=== PATIENT | female | born 1935 | race Caucasian/White ===

== ENCOUNTER 2018-05-10 21:55 | Inpatient (IN) | payer MEDICARE ==
--- NOTE | 2018-05-10 22:28 | RAD ---
SINGLE VIEW OF THE CHEST: 05/10/18 COMPARISON: 10/26/16 HISTORY: Syncope. FINDINGS: Single view of the chest shows a normal sized cardiomediastinal silhouette with atherosclerotic calci fications in the aorta. There is no evidence of consolidation, mass, or pleural effusion. Hyperexpans ion of the lungs is likely secondary to COPD. Biapical pleural thickening is seen. IMPRESSION: No evidence of acute cardiopulmonary disease. POS: [facility]
[2018-05-10 22:39] LABS: Bilirubin Small (Negative); Blood, Urine Negative (Negative); Clarity CLEAR (Clear); Glucose, Urine (Dipstick) Negative (Negative); Leukocyte Trace (Negative); Nitrite Negative (Negative); Protein, Urine (Dipstick) Trace mg/dL (Neg-Trace); Specific Gravity, Urine 1.023 (1.002-1.036); Urobilinogen 0.2 mg/dL (0.2-1.0)
[2018-05-10 22:40] LABS: Bacteria/HPF None Seen HPF (None Seen); Hyaline Casts/LPF 0-3 HYALINE CAST LPF (0-3 Hyaline); Pathc Cast-AUWi Flag 0.72 (0-2.49); RBC/HPF 0-3 HPF (0-3); WBC/HPF 0-3 HPF (0-3)
[2018-05-10 22:41] LABS: #Basophils 0.1 thou/uL (0.0-0.2); #Eosinphils 0.1 thou/uL (0.0-0.7); #Lymphocytes 2.9 thou/uL (1.20-3.40); #Neutrophils 14.2 thou/uL (1.40-6.50); %Basophils 0.4 % (0.0-1.0); %Eosinophils 0.5 % (0.0-10.0); %Lymphocytes 14.9 % (21.0-51.0); %Monocytes 10.4 % (0.0-10.0); %Neutrophils 73.8 % (42.0-75.0); Hemoglobin 9.7 g/dL (12.0-16.0); INR-International Normal Ratio 1.2; MDiff Complete? YES; Mean Corpuscular HGB CONC 28.8 g/dL (32.0-36.0); Mean Corpuscular Hemoglobin 20.5 pg (27.0-31.0); Mean Corpuscular Volume 71.2 fL (78.0-98.0); Mean Platelet Volume 8.8 fL (7.4-10.4); Microcytosis SLIGHT = 6-15 cells (100X) (0-5/hpf); PLT Morphology Comment Appears Increased; Platelet Count 577 thou/uL (130-400); RBC Distribution Width 15.2 % (11.5-14.5); Red Blood Cell (RBC) Count 4.71 mill/uL (4.20-5.40); White Blood Cell (WBC) Count 19.3 thou/uL (4.8-10.8)
[2018-05-10] MEDS ORDERED: Piperacillin/Tazobactam 3.375 GM VIAL ONE (22:43)
[2018-05-10 22:48] LABS: Renal Epithelial 0-3 HPF (0-3)
[2018-05-10 22:51] LABS: ALT (SGPT) 11 U/L (8-55); AST (SGOT) 20 U/L (5-34); Albumin 4.2 g/dL (3.4-4.8); Alkaline Phosphatase 118 U/L (40-150); Anion Gap 21 mmol/L (10-20); BUN (Urea Nitrogen) 25 mg/dL (9.8-20.1); Bilirubin, Total 0.5 mg/dL (0.2-1.2); Calc. Creatinine Clearance 0 mL/min (70-130); Calcium 9.7 mg/dL (7.8-10.44); Carbon Dioxide 19 mmol/L (23-31); Chloride 101 mmol/L (98-107); Estimated GFR-MDRD 36; Globulin 3.4 g/dL (2.4-3.5); Glucose 263 mg/dL (83-110); Protein, Total 7.6 g/dL (6.0-8.3); Sodium 137 mmol/L (136-145)
[2018-05-10 23:11] LABS: CKMB 1.9 ng/mL (0-6.6)
[2018-05-11 02:24] LABS: Lactic Acid 2.3 mmol/L (0.5-2.2)
[2018-05-11 02:42] LABS: Troponin I 0.282 ng/mL (< 0.028)
[2018-05-11] MEDS ORDERED: Guaifenesin DM 100-10/5 ML UDCUP PO PRN (03:26)
[2018-05-11] MEDS ORDERED: Acetaminophen 325 MG TAB PO PRN (03:26)
[2018-05-11] MEDS ORDERED: Bisacodyl 5 MG TAB PO PRN (03:26)
[2018-05-11] MEDS ORDERED: Calcium Carbonate 500 MG ChewTAB PO PRN (03:26)
[2018-05-11] MEDS ORDERED: Zolpidem Tartrate 5 MG TAB PO PRN (03:26)
[2018-05-11] MEDS ORDERED: Acetaminophen 650 MG Suppository PR PRN (03:26)
[2018-05-11] MEDS ORDERED: Senokot S 8.6-50 MG TAB PO PRN (03:26)
--- NOTE | 2018-05-11 05:06 | HP ---
CHIEF COMPLAINT: Lethargy, near syncope, and dehydration. HISTORY OF PRESENT ILLNESS: This is an 83-year-old female with past medical history of orthostatic hypotension, atrial fibrillation, hyperlipidemia, hypertension, presenting with syncope, lethargy, and cough. Per family, the patient has had a cough since and on , the patient did not have any cough at all, but on the day of , they start noted that the patient had cough with productive sputum. The patient was also lethargic, confused, and the patient had decreased appetite. The patient was not taking her home medications. Per the daughter, the patient felt cold and clammy. Per the family, the patient has not been taking her medications because the patient is confused and the patient has been forgotten to take them. The daughter stated that the patient had associated chills, shortness of breath, cough, but denies any fever, chest pain, palpitation, abdominal pain, dysuria, hematuria, hematochezia, or melena. REVIEW OF SYSTEMS: Positive for chills, shortness of breath, productive sputum, otherwise as documented in the HPI, all systems were reviewed and are negative. PAST MEDICAL HISTORY: Hypertension, hyperlipidemia, and atrial fibrillation. FAMILY HISTORY: Reviewed and noncontributory to this visit. PAST SURGICAL HISTORY: Pacemaker and right carotid endarterectomy. PSYCH HISTORY: No previous psych history. SOCIAL HISTORY: The patient denies alcohol use. Denies illicit drug use. The patient has no smoking history. ALLERGIES: NO KNOWN DRUG ALLERGIES. CURRENT MEDICATIONS: The patient takes; 1. Combivent. 2. Respimat. 3. Omeprazole. 4. Potassium chloride. 5. Midodrine. 6. Atorvastatin. 7. Eliquis. 8. Alendronate. 9. Calcium 600 with vitamin D3. 10. Women's 50 Plus Daily Formula. 11. Flecainide 50 mg. 12. Aspirin 81 mg. 13. Digoxin 125 mcg. PHYSICAL EXAMINATION: VITAL SIGNS: The patient's blood pressure is 89/64, pulse of 124, respiratory rate of 18, and O2 saturation of 100%. GENERAL: The patient is lying in bed, does not appear to be in any acute distress. Family is by the bedside. The patient is speaking in full sentences. The patient is alert and oriented x3. HEENT: Normocephalic, atraumatic. Pupils are equally round and reactive to light. Extraocular movements are intact. No scleral icterus. No conjunctival pallor. Mucous membranes are moist. NECK: Trachea is midline. No meningeal signs. No cervical adenopathy. No tenderness. Full range of motion. No JVD. LUNGS: The patient has bilateral wheezing that is noted. The patient has rales that can be appreciated at the lower lobes bilaterally. CARDIAC: Positive S1 and S2. Irregularly irregular. No murmurs, no gallops, no rubs appreciated. ABDOMEN: Soft, nontender, and nondistended. Positive bowel sounds in all quadrants. No masses. No peritoneal signs. BACK: She has normal back. EXTREMITIES: The patient has 5/5 upper extremity strength and 5/5 lower extremity strength. The patient has good pulses bilaterally at the upper and lower extremities bilaterally. No edema noted at the lower extremities. NEUROLOGIC: Cranial nerves 2 through 12 grossly intact. No neurologic deficits noted. SKIN: Warm, dry, and intact. Mild maculopapular rash noted. DIAGNOSTIC DATA: EKG shows some ST depressions in lead I, lead II, and lead III, V1, V2, V3, V4, V5, V6 elevation. The patient is in atrial fibrillation with RVR. LABORATORY DATA: WBC is 19.3, hemoglobin is 9.7, hematocrit is 33.6, MCV 71.2, RDW is 15.2, and platelet count is 577. PT is 15.0, INR is 1.2, and PTT 28.0. Sodium is 137, potassium is 4.0, chloride is 101, carbon dioxide of 19, anion gap of 21, BUN is 25, creatinine is 1.41, GFR is 36, glucose is 263. Lactic acid is 9.9 and 2.3. Troponins is 0.033 and 0.282. BNP is 283. Urinalysis shows trace leukocyte esterase. ASSESSMENT AND PLAN: This is an 83-year-old female being admitted for; 1. Sepsis, secondary to pneumonia. At this point, we have ordered pneumonia panel. We have ordered cultures. We will follow up on cultures. We will start the patient on IV antibiotics. We will also give the patient DuoNeb treatments and we will start the patient on steroids since the patient is having bilateral wheezes at the anterior lung morales. We will give the patient p.r.n. acetaminophen for pain and fevers. The patient is going to be admitted to the [facility]. We will monitor the patient closely. 2. Atrial fibrillation with rapid ventricular response. At this point, the patient's heart rate is 92. We will continue the patient on her anticoagulations. We will monitor the patient closely. 3. [id number] myocardial infarction due to demand ischemia. At this point, the patient is septic, likely leading to elevated troponins. At this time, the patient is on anticoagulation. We will continue the patient on her cardiac regimen. We have consulted Cardiology. 4. Acute kidney injury likely due to dehydration. At this point, the patient has been resuscitated with normal saline. We will continue resuscitation measures and we will continue IV fluid for maintenance. We will continue to monitor the patient. 5. Urinary tract infection. The patient do have a trace leukocyte esterase in her urine. At this point, we will continue the patient on antibiotics. We will repeat the patient's urine culture in the future and we will follow up on culture and sensitivities. 6. Microcytic anemia, likely due to iron deficiency. At this point, we have ordered anemia panel. We will follow up anemia panel. 7. Deep venous thrombosis and gastrointestinal prophylaxis. Job ID: [id number]
[2018-05-11 05:13] LABS: #Lymphocytes 1.4 thou/uL (1.20-3.40); #Monocytes 1.2 thou/uL (0.11-0.59); #Neutrophils 10.3 thou/uL (1.40-6.50); %Eosinophils 0.3 % (0.0-10.0); %Monocytes 9.1 % (0.0-10.0); %Neutrophils 79.6 % (42.0-75.0); Hemoglobin 7.6 g/dL (12.0-16.0); Mean Corpuscular Volume 69.9 fL (78.0-98.0); Mean Platelet Volume 8.5 fL (7.4-10.4); Platelet Count 390 thou/uL (130-400); RBC Distribution Width 14.7 % (11.5-14.5); Red Blood Cell (RBC) Count 3.64 mill/uL (4.20-5.40)
[2018-05-11 05:31] LABS: Iron 38 ug/dL (50-170); Iron Binding Capacity, Total 284 mcg/dL (265-497)
[2018-05-11 05:48] LABS: Albumin 3.4 g/dL (3.4-4.8); Anion Gap 10 mmol/L (10-20); BUN (Urea Nitrogen) 25 mg/dL (9.8-20.1); Calc. Creatinine Clearance 0 mL/min (70-130); Calcium 9.2 mg/dL (7.8-10.44); Carbon Dioxide 26 mmol/L (23-31); Chloride 106 mmol/L (98-107); Estimated GFR-MDRD 57; Glucose 88 mg/dL (83-110); Phosphorus 3.9 mg/dL (2.3-4.7); Potassium 4.3 mmol/L (3.5-5.1); Sodium 138 mmol/L (136-145)
[2018-05-11 06:06] LABS: Vitamin B12 Greater than 2000 pg/mL (211-911)
[2018-05-11] MEDS ORDERED: Digoxin 0.125 MG TAB ONE (08:46)
[2018-05-11] MEDS ORDERED: Famotidine 20 MG TAB ONE (08:46)
[2018-05-11] MEDS: cefTRIAXone\\ROCEPHIN 2 GM in Sodium Chloride 0.9% 100 ML IVPB SCH (08:51)
[2018-05-11] MEDS ORDERED: Famotidine/PF 20 mg/2ml Vial SLOW IVP SCH (09:00)
[2018-05-11] MEDS: Sodium Chloride 0.9% 1,000 ML IV SCH ×2 (09:06→21:34)
[2018-05-11] MEDS: Flecainide 50 MG TAB PO SCH ×2 (09:12→21:22)
[2018-05-11] MEDS: Calcium Carbonate + Vit D 1 TAB PO SCH (09:13)
[2018-05-11] MEDS: Digoxin 0.125 MG TAB PO SCH (09:13)
[2018-05-11] MEDS: Famotidine 20 MG TAB PO SCH (09:13)
[2018-05-11] MEDS: Apixaban 5 MG TAB PO SCH ×2 (09:14→21:21)
[2018-05-11] MEDS: Midodrine HCl 5 MG TAB PO SCH ×2 (09:19→21:21)
[2018-05-11] MEDS: Azithromycin 500 MG in Sodium Chloride 0.9% 250 ML 250 ML IVPB SCH (11:23)
[2018-05-11] MEDS ORDERED: hydrALAZINE 20 MG/ML VIAL ONE (16:39)
[2018-05-11] MEDS ORDERED: Sodium Chloride 0.9% 500 ML IVPB SCH (19:00)
[2018-05-11] MEDS: Sodium Chloride 0.45% 1,000 ML IV SCH (21:11)
[2018-05-11] MEDS: Atorvastatin Calcium 40 MG TAB PO SCH (21:22)
[2018-05-11 23:07] VITALS: BMI 18.9
--- NOTE | 2018-05-12 01:33 | CON ---
DATE OF CONSULTATION: 05/11/2018 SERVICE: Pulmonary Medicine. REASON FOR CONSULTATION: COPD exacerbation. HISTORY OF PRESENT ILLNESS: The patient is an 83-year-old white female with past medical history significant for COPD. She has a greater than [id number] history of smoking and quit about 10 years ago. She was in her usual state of health until the day before [place]. She started having increasing dyspnea on exertion, cough, sputum production that was purulent, and increasing lethargy. She has been increasing amount of times in bed and stopped eating or drinking very well. Ultimately, she came to the hospital because she started having orthostasis. In the emergency department, she was given some fluid, steroids, nebulized medications. So far, the patient actually feels like she is doing much better. She is breathing more comfortably. She denies any fevers, chills, nausea, or vomiting. She has not had any diarrhea recently. PAST MEDICAL HISTORY: 1. Mild cognitive impairment, suspected. 2. COPD. 3. Hypertension. 4. Dyslipidemia. 5. Atrial fibrillation, paroxysmal. PAST SURGICAL HISTORY: 1. Pacemaker placement. 2. Right carotid endarterectomy. FAMILY HISTORY: Noncontributory. SOCIAL HISTORY: Negative for current alcohol, tobacco, or illicit drug use. She has given up driving and she has given up her finances as she was making mistakes. She has no exposure to chemicals, dust, asbestos, or tuberculosis. She has a greater than [id number] history of smoking, but quit over 10 years ago. ALLERGIES: NO KNOWN DRUG ALLERGIES. MEDICATIONS: List of her inpatient medications was reviewed. Multiple updates were made. REVIEW OF SYSTEMS: General, head, ears, eyes, nose, throat, cardiovascular, respiratory, GI, , musculoskeletal, neurologic, and skin is negative, except for as mentioned in the HPI. PHYSICAL EXAMINATION: VITAL SIGNS: Afebrile, pulse 75, respirations 18, and saturation 96% on room air. GENERAL: The patient is awake and alert, in no apparent distress. LUNGS: Decent air entry. There is extensive polyphonic wheezing on exhalation. There is no wheezing on inhalation. I do not appreciate any crackles dependently. There are no rhonchi. HEART: Normal rate, regular. Irregular tachy rhythm has resolved. ABDOMEN: Soft, nontender, and nondistended. Bowel sounds are positive. MUSCULOSKELETAL: No cyanosis or clubbing. There is no pitting in the bilateral lower extremities. NEUROLOGIC: Grossly nonfocal. LABORATORY DATA: WBC downtrending to 13.0, hemoglobin 7.6, platelets 398,000. INR 1.2. Basic metabolic profile is unremarkable. Iron is 38, TIBC 284. Troponin is up trending to 0.96. Albumin 3.4, folate 16.4, B12 of 2000. Lactate 2.3. Urinalysis is essentially unremarkable. Blood cultures x2, influenza A and B, and urine culture are all unremarkable today. IMAGING DATA: Chest x-ray demonstrates no acute cardiopulmonary abnormality. The lungs are hyperexpanded consistent with air trapping. ASSESSMENT: 1. Chronic obstructive pulmonary disease with acute exacerbation. 2. Atrial fibrillation with rapid ventricular rate, returned to sinus rhythm. 3. Early dementia, suspected. 4. Acute kidney injury. 5. Dehydration secondary to poor p.o. intake. PLAN: Agree with gentle hydration. We will give her 5 days of steroids and 5 days of antibiotics for her COPD exacerbation. Frequent nebulized medications will be provided. Pulmonary Critical Care will continue to follow for the time being. I see no evidence of pneumonia on the chest x-ray. As such, I think we can get by with oral fluoroquinolone for the next 5 days. We will make this transition in the morning. Steroids will be de-escalated. I will run a respiratory virus panel to see whether or not she has picked up a virus. 70 minutes have been devoted to this patient in various activities. I personally reviewed all imaging studies and laboratory data noted within this document. For fifty percent of this time, I was interacting with the patient at the bedside or coordinating care with the care team. For the remainder of the time I was immediately available to the patient in the hospital unit. Job ID: [id number] [facility]
[2018-05-12] MEDS: cefTRIAXone\\ROCEPHIN 2 GM in Sodium Chloride 0.9% 100 ML IVPB SCH (08:46)
[2018-05-12] MEDS: Apixaban 5 MG TAB PO SCH ×2 (08:47→20:14)
[2018-05-12] MEDS: predniSONE 20 MG TAB PO SCH (08:47)
[2018-05-12] MEDS: Digoxin 0.125 MG TAB PO SCH (08:48)
[2018-05-12] MEDS: Calcium Carbonate + Vit D 1 TAB PO SCH (08:48)
[2018-05-12] MEDS: Famotidine 20 MG TAB PO SCH (08:49)
[2018-05-12] MEDS: Midodrine HCl 5 MG TAB PO SCH ×2 (08:49→20:12)
[2018-05-12] MEDS: Flecainide 50 MG TAB PO SCH ×2 (08:49→20:13)
[2018-05-12] MEDS: Azithromycin 500 MG in Sodium Chloride 0.9% 250 ML 250 ML IVPB SCH (09:51)
--- NOTE | 2018-05-12 13:28 | PDOC.CTH ---
Cardiology Progress Note - Subjective No complaints. Breathing easier. No CP/palpitations or dizziness. - Objective Vital Signs Temp Pulse Resp BP Pulse Ox 05/12/18 12:01 97.8 F 95 20 164/69 H 97 05/12/18 08:48 108 H 05/12/18 07:50 98.7 F 90 16 162/72 H 97 05/12/18 06:41 91 16 98 05/12/18 04:00 98.4 F 90 18 110/54 L 95 Weight 110 lb 3.2 oz 05/11/18 05/12/18 05/13/18 06:59 06:59 06:59 Intake Total 740 Output Total 625 Balance 115 - Physical Examination General/Neuro: alert & oriented x3 Neck: no JVD present Lungs: CTA Heart: RRR Abdomen: NT/ND - Telemetry Telemetry Rhythm: SR - Labs Result Diagrams: 05/11/18 05:01 05/11/18 05:01 Troponin/CKMB CK-MB (CK-2) 1.9 ng/mL (0-6.6) 05/10/18 22:03 Troponin I 0.960 ng/mL (< 0.028) H* 05/11/18 05:01 - Assessment/Plan 1. PNA 2. Paroxysmal AF 3. History of hypotension on midodrine 4. Tachycardia Contine IV hydration, flecainide and digoxin. If AF reoccurs could increase flecainide to 75mg BID. Continue Eliquis 2.5mg BID.
--- NOTE | 2018-05-12 14:21 | PDOC.PN ---
- Subjective Encounter Start Date: 05/12/18 Encounter Start Time: 13:00 -: old records requested/rev Pt seen and examined, chart reviewed in its entirety, this is my cooper visit wtih this patient Follow up for possible CAP, AECOPD. Pt on RA. breathing is better, getting up near the bed with PT No f/C, no N/V/D/C, no CP or sOB, no new complaints All systems reviewed adn neg x as above - Objective Resuscitation Status - Order Detail: 05/11/18 03:20 Resuscitation Status Routine Resuscitation Status: FULL: Full Resuscitation MAR Reviewed: Yes Vital Signs & Weight: Vital Signs (12 hours) Temp Pulse Resp BP Pulse Ox 05/12/18 13:55 106 H 18 98 05/12/18 12:01 97.8 F 95 20 164/69 H 97 05/12/18 08:48 108 H 05/12/18 07:50 98.7 F 90 16 162/72 H 97 05/12/18 06:41 91 16 98 05/12/18 04:00 98.4 F 90 18 110/54 L 95 Weight Admit Weight 110 lb Weight 110 lb 3.2 oz I&O: 05/11/18 05/12/18 05/13/18 06:59 06:59 06:59 Intake Total 740 Output Total 625 Balance 115 Result Diagrams: 05/11/18 05:01 05/11/18 05:01 Radiology Reviewed by me: Yes EKG Reviewed by me: Yes Phys Exam - Physical Examination Constitutional: NAD HEENT: PERRLA, moist MMs, sclera anicteric, oral pharynx no lesions Neck: no nodes, no JVD, supple, full ROM end exp low pitched wheezes, R>L, Lef tposterior harsh crackles Cardiovascular: RRR, no rub 3/6 ELIF LUSB Gastrointestinal: soft, non-tender, no distention, positive bowel sounds Musculoskeletal: no edema, pulses present Neurological: non-focal, normal sensation, moves all 4 limbs Lymphatic: no nodes Psychiatric: normal affect, A&O x 3 Skin: no rash, normal turgor, cap refill <2 seconds Dx/Plan (1) Severe sepsis Code(s): A41.9 - SEPSIS, UNSPECIFIED ORGANISM; R65.20 - SEVERE SEPSIS WITHOUT SEPTIC SHOCK Status: Acute (2) Atrial fibrillation with RVR Code(s): I48.91 - UNSPECIFIED ATRIAL FIBRILLATION Status: Acute (3) Demand ischemia of myocardium Code(s): I24.8 - OTHER FORMS OF ACUTE ISCHEMIC HEART DISEASE Status: Acute (4) Pneumonia Code(s): J18.9 - PNEUMONIA, UNSPECIFIED ORGANISM Status: Acute Qualifiers: Pneumonia type: due to unspecified organism Laterality: left Lung location: unspecified part of lung Qualified Code(s): J18.9 - Pneumonia, unspecified organism (5) COPD exacerbation Code(s): J44.1 - CHRONIC OBSTRUCTIVE PULMONARY DISEASE W (ACUTE) EXACERBATION Status: Acute Comment: resolving (6) HTN (hypertension) Code(s): I10 - ESSENTIAL (PRIMARY) HYPERTENSION Status: Chronic Qualifiers: Hypertension type: essential hypertension Qualified Code(s): I10 - Essential (primary) hypertension (7) Hyperlipidemia Code(s): E78.5 - HYPERLIPIDEMIA, UNSPECIFIED Status: Chronic Qualifiers: Hyperlipidemia type: unspecified Qualified Code(s): E78.5 - Hyperlipidemia , unspecified (8) Physical deconditioning Code(s): R53.81 - OTHER MALAISE Status: Chronic Comment: PT evaluation and assessment for functional state - Plan cont current plan of care, plan discussed w/ family, continue antibiotics, PT/OT , respiratory therapy * .
[2018-05-12] MEDS: Sodium Chloride 0.45% 1,000 ML IV SCH (15:32)
--- NOTE | 2018-05-12 18:30 | EKG ---
Test Reason : Blood Pressure : / mmHG Vent. Rate : 142 BPM Atrial Rate : 156 BPM P-R Int : 000 ms QRS Dur : 078 ms QT Int : 278 ms P-R-T Axes : 000 -66 093 degrees QTc Int : 427 ms Atrial fibrillation with rapid ventricular response Left axis deviation Marked ST abnormality, possible inferolateral subendocardial injury Abnormal ECG Confirmed by CARLOS ARNOLD DO [id number]), legal editor LORENZO GRAY ([id number] on 05/12/2018 6:29:37 PM Referred By: Confirmed By:CARLOS ARNOLD DO
[2018-05-12] MEDS: Atorvastatin Calcium 40 MG TAB PO SCH (20:13)
[2018-05-12] MEDS ORDERED: Ascorbic Acid 500 mg Chewable Tablet PO SCH (20:30)
[2018-05-12 21:04] LABS: Strep pneumo Urine Ag NEGATIVE (NEGATIVE)
--- NOTE | 2018-05-12 21:38 | PRG ---
DATE OF SERVICE: 05/12/2018 SERVICE: Pulmonary Medicine. INTERVAL HISTORY: The patient is breathing comfortably right now. Her shortness of breath is much improved. Strength is actually improving a little bit as well. She is not agitated today. She denies any fevers, chills, nausea, or vomiting. She is coughing, but not bringing up much in the way of sputum. OBJECTIVE: VITAL SIGNS: Afebrile, pulse 109, blood pressure 129/58, respirations 20, and saturation 100% on room air. GENERAL: The patient is awake and alert, in no apparent distress. LUNGS: Decent air entry. There is a prolonged expiratory phase and a little bit of wheezing. No rhonchi are present today. No crackles are appreciated. HEART: Normal rate and regular. ABDOMEN: Soft, nontender, and nondistended. Bowel sounds are positive. MUSCULOSKELETAL: No cyanosis or clubbing. No pitting in the bilateral lower extremities. NEUROLOGIC: Grossly nonfocal. LABORATORY DATA: WBC 13.0, hemoglobin 7.6, and platelets 390,000 and improving. Neutrophil count has improved to 79%. INR 1.2. Basic metabolic profile is unremarkable. Iron is low. Respiratory virus panel is positive for respiratory syncytial virus B. Blood cultures x2, urine culture, influenza A and B are unremarkable. ASSESSMENT: 1. Chronic obstructive pulmonary disease exacerbation, secondary to respiratory syncytial virus B. 2. Atrial fibrillation with rapid ventricular response, returned to sinus rhythm. 3. Early dementia, suspected. 4. Acute kidney injury, resolved. 5. Dehydration, secondary to poor p.o. intake. 6. Iron-deficiency anemia. DISCUSSION AND PLAN: We will continue to gently hydrate the patient through time. We will continue our antibiotics. I will drop the Rocephin as it was not dealing with a typical organism. If she has any inflammatory changes, they are secondary to respiratory syncytial virus. We will keep the azithromycin on board for the anti-inflammatory effect. This can be stopped after a total duration of 5 days. I will check some laboratories with a.m. labs to confirm the iron deficiency. If present, she will need to be on iron replacement through time. Job ID: [id number]
[2018-05-13 06:15] LABS: Anion Gap 11 mmol/L (10-20); BUN (Urea Nitrogen) 17 mg/dL (9.8-20.1); Calc. Creatinine Clearance 53 mL/min (70-130); Calcium 8.9 mg/dL (7.8-10.44); Carbon Dioxide 23 mmol/L (23-31); Chloride 108 mmol/L (98-107); Estimated GFR-MDRD Greater than 90; Glucose 108 mg/dL (83-110); Magnesium 1.8 mg/dL (1.6-2.6); Potassium 3.4 mmol/L (3.5-5.1); Sodium 139 mmol/L (136-145)
[2018-05-13 06:16] LABS: Phosphorus 3.2 mg/dL (2.3-4.7); Transferrin, Serum 229 mg/dL (173-360)
[2018-05-13 06:32] LABS: Band 2 % (5-11); Elliptocytes SLIGHT = 2-5 cells (100X) (0-1/hpf); Hypochromia MODERATE=16-30 cells (100X) (0-5/hpf); Lymphocytes 18 % (21-51); MDiff Complete? YES; Mean Corpuscular HGB CONC 29.7 g/dL (32.0-36.0); Mean Corpuscular Hemoglobin 20.4 pg (27.0-31.0); Mean Corpuscular Volume 68.7 fL (78.0-98.0); Mean Platelet Volume 8.3 fL (7.4-10.4); Monocytes 10 % (0-10); Neutrophil 69 % (42-75); PLT Morphology Comment Appears Adequate; Platelet Count 395 thou/uL (130-400); RBC Distribution Width 14.6 % (11.5-14.5); Reactive Lymphocytes 1 % (0-10); Red Blood Cell (RBC) Count 2.92 mill/uL (4.20-5.40); Target Cells SLIGHT = 2-5 cells (100X) (0-1/hpf); White Blood Cell (WBC) Count 8.8 thou/uL (4.8-10.8)
[2018-05-13] MEDS: Ascorbic Acid 500 mg Chewable Tablet PO SCH (08:24)
[2018-05-13] MEDS: predniSONE 20 MG TAB PO SCH (08:24)
[2018-05-13] MEDS: Calcium Carbonate + Vit D 1 TAB PO SCH (08:25)
[2018-05-13] MEDS: Digoxin 0.125 MG TAB PO SCH (08:25)
[2018-05-13] MEDS: Azithromycin 250 MG TAB PO SCH (08:25)
[2018-05-13] MEDS: Midodrine HCl 5 MG TAB PO SCH (08:26)
[2018-05-13] MEDS: Flecainide 50 MG TAB PO SCH ×2 (08:26→20:17)
[2018-05-13] MEDS: Famotidine 20 MG TAB PO SCH (08:26)
--- NOTE | 2018-05-13 11:56 | PDOC.CTH ---
Cardiology Progress Note - Objective Vital Signs Temp Pulse Pulse Resp BP BP Pulse Ox 05/13/18 11:50 98.1 F 94 16 164/70 H 95 05/13/18 11:27 97.8 F 91 18 142/65 H 98 05/13/18 08:25 105 H 05/13/18 08:20 98.2 F 105 H 20 157/72 H 92 L 05/13/18 07:34 95 05/13/18 04:00 97.8 F 85 20 127/59 L 97 05/13/18 00:38 89 16 96 Admit Weight 110 lb Weight 112 lb 12.8 oz 05/12/18 05/13/18 05/14/18 06:59 06:59 06:59 Intake Total 2230 0 Output Total 2325 Balance -95 0 - Physical Examination General/Neuro: alert & oriented x3 Neck: no JVD present Lungs: other: (coarse BS bilaterally; no wheeze) Heart: RRR Abdomen: NT/ND Extremities: other: (no edema) - Telemetry Telemetry Rhythm: SR/ST - Labs Result Diagrams: 05/13/18 05:37 05/13/18 05:37 Troponin/CKMB CK-MB (CK-2) 1.9 ng/mL (0-6.6) 05/10/18 22:03 Troponin I 0.960 ng/mL (< 0.028) H* 05/11/18 05:01 - Assessment/Plan 1. RSV 2. Paroxysmal AF 3. History of hypotension on midodrine 4. Tachycardia 5. Acute Anemia Agree with stop Eliquis. Transfuse. Supportive care of RSV.
[2018-05-13] MEDS ORDERED: Furosemide 20 MG/2 ML VIAL SLOW IVP SCH (15:00)
[2018-05-13] MEDS: hydrALAZINE 20 MG/ML VIAL SLOW IVP PRN (16:07)
[2018-05-13] MEDS: Atorvastatin Calcium 40 MG TAB PO SCH (20:17)
[2018-05-13] MEDS ORDERED: Digoxin 0.5 MG/2 ML AMP ONE (20:27)
[2018-05-13] MEDS ORDERED: Magnesium 2 GM/50 ML 2 GM in Premix Bag 1 BAG IVPB SCH (20:30)
[2018-05-13] MEDS ORDERED: Digoxin 0.5 MG/2 ML AMP SLOW IVP SCH (20:30)
--- NOTE | 2018-05-13 20:31 | PRG ---
DATE OF SERVICE: 05/13/2018 SERVICE: Pulmonary Medicine. INTERVAL HISTORY: The patient is feeling stronger as of this morning. She actually felt much improved. That being said, she got a unit of blood. Afterwards, she got hypertensive event and had increasing shortness of breath. She got a dose of Lasix. She had a little bit of urine output associated with that, but it was until she got a p.r.n. blood pressure medication that her blood pressure got under better control. She is coughing a little bit more. PHYSICAL EXAMINATION: VITAL SIGNS: Afebrile, pulse 154, respirations 18, saturation 95% on room air, and blood pressure 163/73. HEENT: Normocephalic and atraumatic. Sclerae white. Conjunctivae pink. Oral mucosa is moist without lesions. LUNGS: Reduced air entry today. There is a prolonged expiratory phase and polyphonic wheezing. Dependent crackles are noted. HEART: Normal rate, regular. ABDOMEN: Soft, nontender, and nondistended. Bowel sounds are positive. MUSCULOSKELETAL: No cyanosis or clubbing. There is no pitting in the bilateral lower extremities. NEUROLOGIC: Grossly nonfocal. LABORATORY DATA: WBC 8.8, hemoglobin 6.0, and platelets 395,000. Potassium 3.4. Phosphorus 3.2 and magnesium 1.8. LDH 236, which is just above upper limits of normal. Transferrin 229, which is normal. Ferritin stores are at the lower limits of normal. ASSESSMENT: 1. Chronic obstructive pulmonary disease exacerbation secondary to respiratory syncytial virus B. 2. Multifocal atrial tachycardia. 3. Acute kidney injury, resolved. 4. Iron-deficiency anemia. 5. Acute blood loss anemia. 6. Dehydration, resolved. DISCUSSION AND PLAN: We will continue nebulized medications, steroids, and antibiotics. We are investigating, where the blood is going. Pulmonary/Critical Care will continue to follow along while the patient remains in this location. We will watch her volume status very closely. Job ID: [id number]
[2018-05-13] MEDS: Diltiazem 125 MG in Sodium Chloride 0.9% 100 ML IVPB SCH (21:15)
[2018-05-13] MEDS: Potassium Chloride 20 MEQ TAB PO SCH (21:28)
[2018-05-14] MEDS: Potassium Chloride 20 MEQ TAB PO SCH (01:14)
[2018-05-14 05:35] LABS: Hemoglobin 10.8 g/dL (12.0-16.0)
[2018-05-14 05:49] LABS: Anion Gap 14 mmol/L (10-20); BUN (Urea Nitrogen) 18 mg/dL (9.8-20.1); Calc. Creatinine Clearance 44 mL/min (70-130); Calcium 9.5 mg/dL (7.8-10.44); Carbon Dioxide 26 mmol/L (23-31); Chloride 103 mmol/L (98-107); Estimated GFR-MDRD 73; Glucose 126 mg/dL (83-110); Potassium 3.9 mmol/L (3.5-5.1); Sodium 139 mmol/L (136-145)
[2018-05-14 05:53] LABS: Digoxin 1.43 ng/mL (0.8-2.0)
[2018-05-14] MEDS: hydrALAZINE 20 MG/ML VIAL SLOW IVP PRN ×2 (06:16→17:30)
[2018-05-14] MEDS: predniSONE 20 MG TAB PO SCH (08:58)
[2018-05-14] MEDS: Digoxin 0.125 MG TAB PO SCH (08:58)
[2018-05-14] MEDS: Famotidine 20 MG TAB PO SCH (08:58)
[2018-05-14] MEDS: Azithromycin 250 MG TAB PO SCH (08:58)
[2018-05-14] MEDS: Flecainide 50 MG TAB PO SCH ×2 (08:58→21:30)
[2018-05-14] MEDS: Ascorbic Acid 500 mg Chewable Tablet PO SCH (08:58)
[2018-05-14] MEDS: Calcium Carbonate + Vit D 1 TAB PO SCH (08:58)
--- NOTE | 2018-05-14 14:18 | CON ---
DATE OF CONSULTATION: REASON FOR CONSULTATION: Shortness of breath. HISTORY OF PRESENT ILLNESS: Ms. Sebastian is a 83-year-old woman, who is a patient of Dr. Caraballo. She was last seen and evaluated in January of 2017. She has a previous history of malnutrition, lactic acidosis, elevated troponin, deconditioning, atrial fibrillation. She is currently on anticoagulation therapy. Recently, she has had decreased p.o. intake. Medications that are normally taken on a regular basis have not been taken as scheduled. Her main issue today appears to be related to dehydration and mental status changes. No chest pain or pressure noted. PAST MEDICAL HISTORY: COPD; sick sinus syndrome, status post pacemaker implantation in 2017; diastolic dysfunction; hypertension; and hyperlipidemia. ALLERGIES: NONE. PAST SURGICAL HISTORY: Carotid endarterectomy. MEDICATIONS: Include Combivent, omeprazole, potassium, midodrine, atorvastatin, Eliquis, alendronate, calcium, flecainide, aspirin, and digoxin. REVIEW OF SYSTEMS: A 10-point review of systems is reviewed and as above, negative. PHYSICAL EXAMINATION: GENERAL: Patient is a pleasant female, who is in no acute distress. She does appear thin and older than stated age. She does appear malnourished. VITAL SIGNS: Blood pressure 140/60, pulse 94, and respirations 20. NEUROLOGIC: The patient is alert and oriented x3 with no focal neurologic deficits. HEENT: Sclerae without icterus. Mouth has moist mucous membranes with normal pallor. NECK: No JVD. Carotid upstroke brisk. No bruits bilaterally. LUNGS: Clear to auscultation with unlabored respirations. BACK: No scoliosis or kyphosis. CARDIAC: Regular rate and rhythm with normal S1 and S2. No S3 or S4 noted. No significant rubs, murmurs, thrills, or gallops noted throughout the precordium. PMI is not displaced. There is no parasternal heave. ABDOMEN: Soft, nontender, nondistended. No peritoneal signs present. No hepatosplenomegaly. No abnormal striae. EXTREMITIES: 2+ femoral and 2+ dorsalis pedis pulses. No cyanosis, clubbing, or edema. SKIN: No gross abnormalities. PERTINENT LABORATORY DATA: Hemoglobin 9.7, creatinine 0.62 with a GFR of greater than 90, potassium 4.3. IMPRESSION: 1. Shortness of breath. 2. Chronic atrial fibrillation. 3. Anemia. 4. Malnutrition. 5. Dehydration. 6. Elevated troponin. RECOMMENDATIONS: From a CV standpoint, Ms. Sebastian appears stable. Her elevated troponin likely related to demand ischemia. The patient appears to be anemic and dehydrated. She has also not been taking her medications regularly. At this point, we will continue supportive care. She currently appears to be asymptomatic. We will review her echo. Pulmonary has been consulted for underlying COPD. Job ID: [id number]
--- NOTE | 2018-05-14 14:47 | PRG ---
DATE OF SERVICE: 05/14/2018 SUBJECTIVE: Ms. Sebastian says she feels better. Her daughter says that Physical Therapy does not come around and they are concerned about her lack of therapy. OBJECTIVE: VITAL SIGNS: Temperature 98.0, pulse 96, respirations are 16, O2 saturation 96% on room air, and blood pressure 158/72. GENERAL: She is a thin, frail, elderly female, who is in no acute distress. HEENT: Unremarkable. NECK: No JVD. LUNGS: Coarse mild rhonchi scattered bilaterally CARDIOVASCULAR: S1 and S2, regular. ABDOMEN: Soft. EXTREMITIES: No edema. LABORATORY DATA: Hemoglobin 10 and hematocrit 33. Sodium 139, potassium 3.9, BUN 18, creatinine 0.7, and glucose 126. ASSESSMENT: 1. Chronic obstructive pulmonary disease with exacerbation secondary to RSV type B. 2. Multifocal atrial tachycardia. 3. Acute kidney injury, which is improved. 4. Acute blood loss anemia, which is improved. PLAN: This is mainly a reconditioning issue. She needs to continue with physical therapy. Her antibiotics are due to in a couple of days and I would not extend beyond what has already been written by Dr. Tello. She will continue breathing treatments and her steroids will be stopped on May 16. Job ID: [id number]
--- NOTE | 2018-05-14 14:49 | PDOC.PN ---
- Subjective Encounter Start Date: 05/14/18 Encounter Start Time: 14:48 Doing better in general. Breathing is better. Concerned about her need for PT. She was getting up and around at home with no assistive devices. - Objective Resuscitation Status - Order Detail: 05/11/18 03:20 Resuscitation Status Routine Resuscitation Status: FULL: Full Resuscitation Vital Signs & Weight: Vital Signs (12 hours) Temp Pulse Resp BP BP BP Pulse Ox 05/14/18 14:41 83 18 96 05/14/18 13:33 99.0 F 84 16 131/61 95 05/14/18 08:58 96 05/14/18 08:55 98.0 F 94 16 158/72 H 96 05/14/18 06:16 88 193/88 H 05/14/18 04:00 97.8 F 104 H 20 146/67 H 95 Weight Admit Weight 110 lb Weight 112 lb 8 oz I&O: 05/13/18 05/14/18 05/15/18 06:59 06:59 06:59 Intake Total 2230 1368.8 Output Total 2325 1650 Balance -95 -281.2 Result Diagrams: 05/14/18 04:49 05/14/18 04:49 Phys Exam - Physical Examination Constitutional: NAD Thin, frail. Respiratory: no rhonchi Scattered wheezing and rales bilaterally. Cardiovascular: RRR, no significant murmur Gastrointestinal: soft, non-tender, no distention, positive bowel sounds Musculoskeletal: no edema Dx/Plan (1) RSV (acute bronchiolitis due to respiratory syncytial virus) Status: Acute (2) HTN (hypertension) Code(s): I10 - ESSENTIAL (PRIMARY) HYPERTENSION Status: Chronic Qualifiers: Hypertension type: essential hypertension Qualified Code(s): I10 - Essential (primary) hypertension (3) Physical deconditioning Code(s): R53.81 - OTHER MALAISE Status: Chronic Comment: PT evaluation and assessment for functional state (4) Acute kidney injury Code(s): N17.9 - ACUTE KIDNEY FAILURE, UNSPECIFIED Status: Acute (5) Dehydration Code(s): E86.0 - DEHYDRATION Status: Acute (6) Iron deficiency anemia Code(s): D50.9 - IRON DEFICIENCY ANEMIA, UNSPECIFIED Status: Acute (7) Atrial fibrillation with RVR Code(s): I48.91 - UNSPECIFIED ATRIAL FIBRILLATION Status: Acute (8) COPD exacerbation Code(s): J44.1 - CHRONIC OBSTRUCTIVE PULMONARY DISEASE W (ACUTE) EXACERBATION Status: Acute Comment: resolving - Plan * Discussed with Dr. Damon. * Discussed with nurse. * Discussed with patient's daughters. * Continue Abx, steroids for another couple of days. * Start PT...on their way now. * Monitor hgb.
--- NOTE | 2018-05-14 17:35 | PDOC.CTH ---
Cardiology Progress Note - Subjective No new issues. - Objective Vital Signs Temp Pulse Pulse Pulse Pulse Resp BP 05/14/18 17:30 88 170/75 H 05/14/18 16:57 97.8 F 94 18 05/14/18 14:57 84 95 94 05/14/18 14:41 83 18 05/14/18 13:33 99.0 F 84 16 05/14/18 08:58 96 05/14/18 08:55 98.0 F 94 16 05/14/18 06:16 88 193/88 H BP BP BP BP Pulse Ox Pulse Ox Pulse Ox 05/14/18 17:30 05/14/18 16:57 175/88 H 96 05/14/18 14:57 180/79 H 188/84 H 97 95 05/14/18 14:41 96 05/14/18 13:33 131/61 95 05/14/18 08:58 05/14/18 08:55 158/72 H 96 05/14/18 06:16 Pulse Ox 05/14/18 17:30 05/14/18 16:57 05/14/18 14:57 95 05/14/18 14:41 05/14/18 13:33 05/14/18 08:58 05/14/18 08:55 05/14/18 06:16 Admit Weight 110 lb Weight 112 lb 8 oz 05/13/18 05/14/18 05/15/18 06:59 06:59 06:59 Intake Total 2230 1368.8 988 Output Total 2325 1650 520 Balance -95 -281.2 468 - Physical Examination General/Neuro: alert & oriented x3, NAD Neck: no JVD present Lungs: unlabored respirations Heart: RRR Abdomen: NT/ND Extremities: other: (no edema.) - Telemetry Telemetry Rhythm: NSR - Labs Result Diagrams: 05/14/18 04:49 05/14/18 04:49 Troponin/CKMB CK-MB (CK-2) 1.9 ng/mL (0-6.6) 05/10/18 22:03 Troponin I 0.960 ng/mL (< 0.028) H* 05/11/18 05:01 - Assessment/Plan 1. RSV virus/ 2. Paroxysmal AF 3. History of hypotension on midodrine 4. Tachycardia 5. Acute Anemia PLABN: - Continue to hold Eliquis. - Transfuse as needed.
[2018-05-14] MEDS: Atorvastatin Calcium 40 MG TAB PO SCH (21:30)
[2018-05-14 23:08] LABS: Mycoplasma pneumoniae IgG AB Less than 100 U/mL (0-99); Mycoplasma pneumoniae IgM AB Less than 770 U/mL (0-769)
[2018-05-14] MEDS: Diltiazem 125 MG in Sodium Chloride 0.9% 100 ML IVPB SCH (23:26)
[2018-05-15 05:57] LABS: Anion Gap 15 mmol/L (10-20); BUN (Urea Nitrogen) 21 mg/dL (9.8-20.1); Calc. Creatinine Clearance 48 mL/min (70-130); Calcium 9.3 mg/dL (7.8-10.44); Carbon Dioxide 23 mmol/L (23-31); Chloride 101 mmol/L (98-107); Estimated GFR-MDRD 78; Glucose 113 mg/dL (83-110); Potassium 4.6 mmol/L (3.5-5.1); Sodium 134 mmol/L (136-145)
[2018-05-15 06:06] LABS: #Monocytes 1.7 thou/uL (0.11-0.59); #Neutrophils 12.3 thou/uL (1.40-6.50); %Basophils 0.1 % (0.0-1.0); %Eosinophils 0.3 % (0.0-10.0); %Lymphocytes 6.5 % (21.0-51.0); %Monocytes 11.1 % (0.0-10.0); %Neutrophils 81.9 % (42.0-75.0); Elliptocytes SLIGHT = 2-5 cells (100X) (0-1/hpf); Hemoglobin 11.3 g/dL (12.0-16.0); MDiff Complete? YES; Mean Corpuscular HGB CONC 30.5 g/dL (32.0-36.0); Mean Corpuscular Hemoglobin 24.7 pg (27.0-31.0); Mean Corpuscular Volume 80.9 fL (78.0-98.0); Mean Platelet Volume 8.9 fL (7.4-10.4); Platelet Count 357 thou/uL (130-400); RBC Distribution Width 20.4 % (11.5-14.5); Red Blood Cell (RBC) Count 4.57 mill/uL (4.20-5.40); Target Cells SLIGHT = 2-5 cells (100X) (0-1/hpf)
[2018-05-15] MEDS: predniSONE 20 MG TAB PO SCH (09:45)
[2018-05-15] MEDS: Azithromycin 250 MG TAB PO SCH (09:45)
[2018-05-15] MEDS: Calcium Carbonate + Vit D 1 TAB PO SCH (09:45)
[2018-05-15] MEDS: Digoxin 0.125 MG TAB PO SCH (09:45)
[2018-05-15] MEDS: Famotidine 20 MG TAB PO SCH (09:46)
[2018-05-15] MEDS: Ascorbic Acid 500 mg Chewable Tablet PO SCH (09:46)
[2018-05-15] MEDS: Flecainide 50 MG TAB PO SCH ×2 (09:46→20:23)
--- NOTE | 2018-05-15 13:00 | PDOC.PN ---
- Subjective Encounter Start Date: 05/15/18 Encounter Start Time: 11:00 Feels like she is doing ok. Got up an walked with PT fairly well yesterday. Feels like she is breathing fairly well, but still has some rattling in chest. - Objective Resuscitation Status - Order Detail: 05/11/18 03:20 Resuscitation Status Routine Resuscitation Status: FULL: Full Resuscitation Vital Signs & Weight: Vital Signs (12 hours) Temp Pulse Pulse Pulse Resp BP BP 05/15/18 12:02 98.6 F 85 16 05/15/18 09:45 83 05/15/18 09:18 87 20 05/15/18 09:15 05/15/18 08:40 98 85 123/63 130/60 05/15/18 07:15 98.3 F 86 16 05/15/18 04:00 98.1 F 86 18 BP BP Pulse Ox Pulse Ox Pulse Ox 05/15/18 12:02 119/87 96 05/15/18 09:45 05/15/18 09:18 93 L 05/15/18 09:15 91 L 05/15/18 08:40 94 L 94 L 05/15/18 07:15 133/60 91 L 05/15/18 04:00 137/63 92 L Weight Admit Weight 110 lb Weight 112 lb 8 oz I&O: 05/14/18 05/15/18 05/16/18 06:59 06:59 06:59 Intake Total 1368.8 1288 Output Total 1650 1320 Balance -281.2 -32 Result Diagrams: 05/15/18 05:06 05/15/18 05:06 Phys Exam - Physical Examination Constitutional: NAD Thin, frail. Awake and alert. Scattered rales throughout all morales. Cardiovascular: RRR, no significant murmur Gastrointestinal: soft, non-tender, no distention, positive bowel sounds Musculoskeletal: no edema Psychiatric: normal affect Skin: normal turgor Deviation from normal: Posterior calf decubitus Dx/Plan (1) RSV (acute bronchiolitis due to respiratory syncytial virus) Status: Acute Comment: Supportive care. (2) Atrial fibrillation with RVR Code(s): I48.91 - UNSPECIFIED ATRIAL FIBRILLATION Status: Acute Comment: Cardizem gtt. Flecanide. Holding Eliquis due to anemia. (3) Acute kidney injury Code(s): N17.9 - ACUTE KIDNEY FAILURE, UNSPECIFIED Status: Resolved (4) Iron deficiency anemia Code(s): D50.9 - IRON DEFICIENCY ANEMIA, UNSPECIFIED Status: Acute Comment: Transfused. Hgb stable. (5) COPD exacerbation Code(s): J44.1 - CHRONIC OBSTRUCTIVE PULMONARY DISEASE W (ACUTE) EXACERBATION Status: Acute Comment: Steroids til 05/16/18, nebs. Abx finished. (6) Physical deconditioning Code(s): R53.81 - OTHER MALAISE Status: Chronic Comment: PT (7) HTN (hypertension) Code(s): I10 - ESSENTIAL (PRIMARY) HYPERTENSION Status: Chronic Qualifiers: Hypertension type: essential hypertension Qualified Code(s): I10 - Essential (primary) hypertension (8) Dehydration Code(s): E86.0 - DEHYDRATION Status: Acute - Plan * Hemoglobin stable * Can likely resume Eliquis. Will defer to Cardiology. * May be able to DC Cardizem. Defer to Cardiology. * Abx completed. * Steroids to be completed by tomorrow. * Continue PT.
--- NOTE | 2018-05-15 15:36 | PRG ---
DATE OF SERVICE: 05/15/2018 SUBJECTIVE: This morning, she is doing better. She says she is less short of breath, less cough. No fever or chills. OBJECTIVE: VITAL SIGNS: Her sats are 96% on room air, respiratory rate 20, temperature 98.6, and blood pressure 119/83. CHEST: Reveals decreased breath sounds. Prolonged expiration. CARDIAC: Sinus tach. ABDOMEN: Soft. LABORATORY DATA: Her lytes are normal. Her white count is 15,000, hemoglobin 11, and hematocrit 37. DIAGNOSTIC DATA: Her last chest x-ray showed no acute infiltrates. ASSESSMENT: 1. Chronic obstructive pulmonary disease exacerbation and bronchitis. 2. Syncytial virus B infection. 3. Supraventricular tachycardia. PLAN: Continue prednisone. Neb treatment. Supportive care. We will follow. Job ID: [id number]
--- NOTE | 2018-05-15 16:46 | PDOC.CTH ---
Cardiology Progress Note - Subjective She is doing well. No new issues. - Objective Vital Signs Temp Pulse Pulse Pulse Resp BP BP 05/15/18 15:10 88 20 05/15/18 12:02 98.6 F 85 16 05/15/18 09:45 83 05/15/18 09:18 87 20 05/15/18 09:15 05/15/18 08:40 98 85 123/63 130/60 05/15/18 07:15 98.3 F 86 16 BP BP Pulse Ox Pulse Ox Pulse Ox 05/15/18 15:10 05/15/18 12:02 119/87 96 05/15/18 09:45 05/15/18 09:18 93 L 05/15/18 09:15 91 L 05/15/18 08:40 94 L 94 L 05/15/18 07:15 133/60 91 L Admit Weight 110 lb Weight 112 lb 8 oz 05/14/18 05/15/18 05/16/18 06:59 06:59 06:59 Intake Total 1368.8 1288 Output Total 1650 1320 Balance -281.2 -32 - Physical Examination General/Neuro: alert & oriented x3, NAD Neck: no JVD present Lungs: CTA, unlabored respirations Heart: other: (Irreg) Abdomen: NT/ND Extremities: other: (no edema) - Telemetry Telemetry Rhythm: Afib HR 80's. - Labs Result Diagrams: 05/15/18 05:06 05/15/18 05:06 Troponin/CKMB CK-MB (CK-2) 1.9 ng/mL (0-6.6) 05/10/18 22:03 Troponin I 0.960 ng/mL (< 0.028) H* 05/11/18 05:01 - Assessment/Plan 1. RSV virus 2. Paroxysmal AF 3. History of hypotension on midodrine 4. Tachycardia 5. Acute Anemia PLAN: - Continue to hold Eliquis. - Transfuse as needed, hgb much more stable now. - Will stop diltiazem drip as she has been orthostatic in the past.
[2018-05-15] MEDS: Mometasone/Formoterol 120 PUFF INHALER INH SCH (19:46)
[2018-05-15] MEDS: Atorvastatin Calcium 40 MG TAB PO SCH (20:24)
[2018-05-16] MEDS: hydrALAZINE 20 MG/ML VIAL SLOW IVP PRN (05:31)
[2018-05-16 05:36] LABS: Anion Gap 13 mmol/L (10-20); BUN (Urea Nitrogen) 25 mg/dL (9.8-20.1); Calc. Creatinine Clearance 47 mL/min (70-130); Calcium 9.2 mg/dL (7.8-10.44); Carbon Dioxide 27 mmol/L (23-31); Chloride 100 mmol/L (98-107); Estimated GFR-MDRD 77; Glucose 115 mg/dL (83-110); Potassium 4.8 mmol/L (3.5-5.1); Sodium 135 mmol/L (136-145)
[2018-05-16] MEDS: Mometasone/Formoterol 120 PUFF INHALER INH SCH ×2 (07:12→19:20)
[2018-05-16] MEDS: Digoxin 0.125 MG TAB PO SCH (09:24)
[2018-05-16] MEDS: Flecainide 50 MG TAB PO SCH ×2 (09:24→20:05)
[2018-05-16] MEDS: predniSONE 20 MG TAB PO SCH (09:25)
[2018-05-16] MEDS: Calcium Carbonate + Vit D 1 TAB PO SCH (09:25)
[2018-05-16] MEDS: Famotidine 20 MG TAB PO SCH (09:25)
[2018-05-16] MEDS: Ascorbic Acid 500 mg Chewable Tablet PO SCH (09:25)
[2018-05-16 09:27] LABS: #Lymphocytes 1.1 thou/uL (1.20-3.40); #Monocytes 1.3 thou/uL (0.11-0.59); #Neutrophils 9.9 thou/uL (1.40-6.50); %Basophils 0.1 % (0.0-1.0); %Eosinophils 0.3 % (0.0-10.0); %Lymphocytes 8.7 % (21.0-51.0); %Monocytes 10.6 % (0.0-10.0); %Neutrophils 80.4 % (42.0-75.0); Hemoglobin 9.9 g/dL (12.0-16.0); Mean Corpuscular HGB CONC 30.7 g/dL (32.0-36.0); Mean Corpuscular Hemoglobin 23.9 pg (27.0-31.0); Mean Corpuscular Volume 77.7 fL (78.0-98.0); Mean Platelet Volume 9.1 fL (7.4-10.4); Platelet Count 384 thou/uL (130-400); RBC Distribution Width 20.7 % (11.5-14.5); Red Blood Cell (RBC) Count 4.14 mill/uL (4.20-5.40); White Blood Cell (WBC) Count 12.3 thou/uL (4.8-10.8)
[2018-05-16 09:49] LABS: Microcytosis SLIGHT = 6-15 cells (100X) (0-5/hpf); Polychromasia SLIGHT = 2-3 cells (100X) (0-2/hpf)
--- NOTE | 2018-05-16 13:51 | PDOC.PN ---
- Subjective Encounter Start Date: 05/16/18 Encounter Start Time: 09:40 Feels like she is doing well. No specific complaints. Fells like her breathing is ok. Got up and walked back and forth in her room 7 times with PT. - Objective Resuscitation Status - Order Detail: 05/11/18 03:20 Resuscitation Status Routine Resuscitation Status: FULL: Full Resuscitation Vital Signs & Weight: Vital Signs (12 hours) Temp Pulse Resp BP Pulse Ox 05/16/18 12:14 89 16 95 05/16/18 09:24 114 H 05/16/18 09:10 95 05/16/18 07:40 98.1 F 114 H 16 170/72 H 95 05/16/18 07:12 95 18 96 05/16/18 07:10 95 18 96 05/16/18 05:31 91 05/16/18 04:00 98 F 91 21 H 172/76 H 95 Weight Admit Weight 110 lb Weight 112 lb 6.4 oz I&O: 05/15/18 05/16/18 05/17/18 06:59 06:59 06:59 Intake Total 1288 680 Output Total 1320 600 Balance -32 80 Result Diagrams: 05/16/18 04:57 05/16/18 04:57 Phys Exam - Physical Examination Constitutional: NAD Respiratory: no wheezing, no rhonchi Scattered bilateral rales, but improved. Cardiovascular: RRR, no significant murmur, no rub Gastrointestinal: soft, non-tender, no distention, positive bowel sounds Musculoskeletal: no edema Psychiatric: normal affect Dx/Plan (1) RSV (acute bronchiolitis due to respiratory syncytial virus) Status: Acute Comment: Supportive care. (2) Atrial fibrillation with RVR Code(s): I48.91 - UNSPECIFIED ATRIAL FIBRILLATION Status: Acute Comment: Cardizem gtt stopped. Flecanide. Holding Eliquis due to anemia. NSR now. Watching HR. (3) Acute kidney injury Code(s): N17.9 - ACUTE KIDNEY FAILURE, UNSPECIFIED Status: Resolved (4) Iron deficiency anemia Code(s): D50.9 - IRON DEFICIENCY ANEMIA, UNSPECIFIED Status: Acute Comment: Transfused. Hgb stable. (5) COPD exacerbation Code(s): J44.1 - CHRONIC OBSTRUCTIVE PULMONARY DISEASE W (ACUTE) EXACERBATION Status: Acute Comment: Steroids til 05/16/18, nebs. Abx finished. (6) Physical deconditioning Code(s): R53.81 - OTHER MALAISE Status: Chronic Comment: PT (7) HTN (hypertension) Code(s): I10 - ESSENTIAL (PRIMARY) HYPERTENSION Status: Chronic Qualifiers: Hypertension type: essential hypertension Qualified Code(s): I10 - Essential (primary) hypertension (8) Dehydration Code(s): E86.0 - DEHYDRATION Status: Resolved - Plan * COPD exac secondary to RSV infection. Improved. Still has some scattered rales, but much improved. * Await PT to ambulate again today. If HR is ok with ambulation, may be able to discharge. * Off cardizem gtt and in NSR. Rate is good.
--- NOTE | 2018-05-16 15:42 | PQF ---
CLINICAL DOCUMENTATION IMPROVEMENT CLARIFICATION FORM: ICD-10 Updated PLEASE DO AN ADDENDUM TO THE PROGRESS NOTE WITH ANY DOCUMENTATION UPDATES OR ADDITIONS AND CARRY THROUGH TO DC SUMMARY. THANK YOU. DATE: 05/16/18 ATTN: Dr. Mueller Please exercise your independent, professional judgment in responding to the clarification form. Clinical indicators are provided on the bottom of this form for your review Please check appropriate box(s) to clarify if the following diagnosis has been ruled in or ruled out: Sepsis, secondary to pneumonia. [x ] Ruled in diagnosis [ ] Continue to treat [x ] Resolved [ ] Ruled out diagnosis [ ] Cannot rule out diagnosis [ ] Other diagnosis [ ] Unable to determine In addition, please specify: Present on Admission (POA): [ x ] Yes [ ] No [ ] Unable to determine For continuity of documentation, please document condition throughout progress notes and discharge summary. Thank You. CLINICAL INDICATORS - SIGNS / SYMPTOMS / LABS H&P 05/11: BP 89/64 Pulse 124 resp 18 WBC 19.3 Lactic acid 9.9 Sepsis, secondary to pneumonia PN 05/12 (Omer): Respiratory virus panel is positive for respiratory syncytial virus B. COPD exacerbation, secondary to resp. syncytial virus B We will keep the azithromycin on board for the anti-inflammatory effect. PN 05/14/18- 05/16/2018: RSV (Acute bronchiolitis due to respiratory syncytial virus). Acute RISKS: H&P 05/11: 83 yr old. Hx hypertension. and atrial fibrillation. Admitted for Sepsis 2/2 pneumonia. IZA likely due to dehydration TREATMENT: Order 05/11: IV Rocephin. DC'd 05/12/18 Order 05/11: IV Zithromax. Dc'd 05/12/18 Order 05/12: Zithromax 250 mg po Daily. Dc'd 05/15/2018 Thank you, Shiela (This form is maintained as a part of the permanent medical record) 2015 [email or web address]. All Rights Reserved Shiela Serrato RN, BSN [email or web address] Office: [phone] [facility]
--- NOTE | 2018-05-16 15:57 | PRG ---
DATE OF SERVICE: 05/16/2018 SUBJECTIVE: This morning, she is doing well. Less cough and less shortness of breath. She walks in the ortiz without any issues. OBJECTIVE: VITAL SIGNS: Her sats are 96% on room air, respirations are 16, temperature 98, blood pressure 177/79. CHEST: No wheezing or crackles. CARDIAC: Normal S1 and S2. ABDOMEN: No masses. IMPRESSION: Status post chronic obstructive pulmonary disease exacerbation, bronchitis, RSV positive serology. PLAN: 1. She can be discharged home to be followed by primary care physician. She can see Dr. Woodson in the office as needed. 2. Baseline inhaler. Job ID: [id number]
--- NOTE | 2018-05-16 17:33 | PDOC.CTH ---
Cardiology Progress Note - Subjective She is dong very well. No chest pain or palpitations. - Objective Vital Signs Temp Pulse Resp BP Pulse Ox 05/16/18 15:41 98.0 F 98 18 164/74 H 97 05/16/18 12:35 98.7 F 95 16 177/79 H 95 05/16/18 12:14 89 16 95 05/16/18 09:24 114 H 05/16/18 09:10 95 05/16/18 07:40 98.1 F 114 H 16 170/72 H 95 05/16/18 07:12 95 18 96 05/16/18 07:10 95 18 96 Admit Weight 110 lb Weight 112 lb 6.4 oz 05/15/18 05/16/18 05/17/18 06:59 06:59 06:59 Intake Total 1288 680 Output Total 1320 600 Balance -32 80 - Physical Examination General/Neuro: alert & oriented x3, NAD Neck: no JVD present Lungs: CTA, unlabored respirations Heart: RRR Abdomen: NT/ND Extremities: other: (no edema) - Telemetry Telemetry Rhythm: NSR - Labs Result Diagrams: 05/16/18 04:57 05/16/18 04:57 Troponin/CKMB CK-MB (CK-2) 1.9 ng/mL (0-6.6) 05/10/18 22:03 Troponin I 0.960 ng/mL (< 0.028) H* 05/11/18 05:01 - Assessment/Plan 1. RSV virus 2. Paroxysmal AF, in sinus now. 3. History of hypotension on midodrine 4. Tachycardia 5. Acute Anemia PLAN: - Continue to hold Eliquis in definitely. - Hgb stable. - May discharge home from [facility] on home meds, off Eliquis due to anemia.
[2018-05-16] MEDS: Atorvastatin Calcium 40 MG TAB PO SCH (20:05)
[2018-05-17] MEDS: Mometasone/Formoterol 120 PUFF INHALER INH SCH (06:13)
[2018-05-17 06:17] LABS: Anion Gap 12 mmol/L (10-20); BUN (Urea Nitrogen) 34 mg/dL (9.8-20.1); Calc. Creatinine Clearance 44 mL/min (70-130); Calcium 9.4 mg/dL (7.8-10.44); Carbon Dioxide 29 mmol/L (23-31); Chloride 98 mmol/L (98-107); Estimated GFR-MDRD 71; Glucose 91 mg/dL (83-110); Potassium 3.9 mmol/L (3.5-5.1); Sodium 135 mmol/L (136-145)
[2018-05-17 07:59] VITALS: BP 173/75; TEMP 98.1
--- NOTE | 2018-05-17 09:30 | PRG ---
DATE OF SERVICE: 05/17/2018 SUBJECTIVE: Radha Sebastian this morning is awake responsive/short of breath. OBJECTIVE: VITAL SIGNS: Sats are 90% on room air, respiratory rate was 19, blood pressure 137/75. CHEST: Decreased breath sounds. No wheezing. CARDIAC: Normal S1, S2. No gallops. ABDOMEN: No masses. IMPRESSION: Bronchitis, chronic obstructive pulmonary disease, respiratory syncytial virus B infection, supraventricular tachycardia. PLAN: She could be discharged to home on Dulera. She can be seen in the office in a month. Job ID: [id number]
[2018-05-17] MEDS: Calcium Carbonate + Vit D 1 TAB PO SCH (09:37)
[2018-05-17] MEDS: Famotidine 20 MG TAB PO SCH (09:37)
[2018-05-17] MEDS: Digoxin 0.125 MG TAB PO SCH (09:37)
[2018-05-17] MEDS: Ascorbic Acid 500 mg Chewable Tablet PO SCH (09:38)
[2018-05-17] MEDS: Flecainide 50 MG TAB PO SCH (09:38)
--- NOTE | 2018-05-18 13:36 | DIS ---
DATE OF ADMISSION: 05/11/2018 DATE OF DISCHARGE: 05/17/2018 DISCHARGE DIAGNOSES: 1. Respiratory syncytial virus bronchiolitis. 2. Chronic obstructive pulmonary disease exacerbation. 3. Viral sepsis due to respiratory syncytial virus. 4. Atrial fibrillation with rapid ventricular response. 5. Acute kidney injury. 6. Iron deficiency anemia. 7. Physical deconditioning. 8. Hypertension. 9. Dehydration. 10. Type 2 [id number] myocardial infarction secondary to demand ischemia. HISTORY OF PRESENT ILLNESS: This patient is an 83-year-old female who presented through the emergency department with a complaint of lethargy and cough with sputum production. Apparently, the patient had experiencing some confusion, not been taking her medications as prescribed. Initially, the patient's workup was concerning for possibility of sepsis with pneumonia. She was started on broad-spectrum antibiotics. She was also in atrial fibrillation with RVR initially, but had good rate control and quickly converted to sinus rhythm. She had some elevated troponins that were felt to be likely due to type 2 non-STEMI secondary to demand ischemia. Her BUN and creatinine were slightly elevated, consistent with acute kidney injury, likely secondary to dehydration. The patient also had noted some chronic anemia. The patient was admitted to the hospital and started on fluids and broad spectrum antibiotics with oxygen support as needed. The patient continued to improve. Her heart rate remained stable with sinus rhythm. She was seen in consultation by Cardiology and it was recommended that she stay with her usual home medications with no new interventions, although the recommendation was to keep the patient off the Eliquis giving her underlying chronic anemia. The patient had results come back were indicating that she was positive for RSV and it was felt that there was likely some bronchiolitis secondary to RSV causing some COPD exacerbation rather than true underlying bacterial pneumonia. The patient remained on oral antibiotics and steroids along with aggressive nebulizer treatments. She received physical therapy and was ultimately able to get up and around much better within her room. Her hydration status had improved and she was eating and drinking much better on her own. Her renal function normalized with a normal creatinine. Her hemoglobin did get down as low as 6.0, requiring single transfusion after which her hemoglobin better. Once the patient was through full course of antibiotic, steroids, and was able to eat, drink, and ambulate better, she was felt to be stable for discharge to home. PHYSICAL EXAMINATION: On the day of discharge, VITAL SIGNS: Temperature 98.1, pulse 89 to 97, respirations 18, O2 saturation 94% on room air, BP 132/68, up to 173/75. GENERAL: The patient was awake, alert, pleasant, and cooperative. She was in no distress. HEART: Regular without murmurs. LUNGS: Diminished with minimal scattered rales throughout. ABDOMEN: Soft and nontender. EXTREMITIES: Warm and dry. DISPOSITION: The patient is discharged to home. ACTIVITIES: Her activity is as tolerated. DIET: She will be on a regular diet. MEDICATIONS: She will be on; 1. Dulera 200/5 two puffs b.i.d., which will be a newly started medication per Dr. Woodson. 2. She will remain on Lipitor 40 mg at bedtime. 3. Lanoxin 0.125 mg p.o. daily. 4. Potassium 20 mEq daily. 5. Alendronate 70 q.week. 6. Calcium and vitamin D. 7. Flecainide 50 mg b.i.d. 8. Midodrine 2.5 mg b.i.d. 9. Aspirin 81 mg daily. 10. Pantoprazole 40 mg daily. 11. Note, her Eliquis will be discontinued. FOLLOWUP: She will follow up with Dr. Woodson in 3 to 4 weeks, Dr. Heaton in 2 to 3 weeks, and Dr. Cool in 7 days. She can return to the hospital should she have any problems prior to that time. Job ID: [id number]
== END 2018-05-17 11:00 | disposition home or self-care (01) | DRG 871 ==
LOC: ERS 21:55 → ERHOLD 05-11 00:03 → 2NO 05-11 18:16
PROVIDERS: ADMIT Internal Medicine; ATTEND Internal Medicine
PROC: 30233N1 Transfusion of Nonautologous Red Blood Cells into Peripheral Vein, Percutaneous Approach (ICD-10-PCS; principal; 2018-05-13)
DX: A41.9 Sepsis, unspecified organism (principal); J18.9 Pneumonia, unspecified organism; E43 Unspecified severe protein-calorie malnutrition; I24.8 Other forms of acute ischemic heart disease; N17.9 Acute kidney failure, unspecified; N39.0 Urinary tract infection, site not specified; J44.1 Chronic obstructive pulmonary disease with (acute) exacerbation; Z68.1 Body mass index [BMI] 19.9 or less, adult; N18.4 Chronic kidney disease, stage 4 (severe); D62 Acute posthemorrhagic anemia; E78.5 Hyperlipidemia, unspecified; E86.0 Dehydration; D50.9 Iron deficiency anemia, unspecified; R65.20 Severe sepsis without septic shock; I48.0 Paroxysmal atrial fibrillation; R00.0 Tachycardia, unspecified; F03.90 Unspecified dementia, unspecified severity, without behavioral disturbance, psychotic disturbance, mood disturbance, and anxiety; I12.9 Hypertensive chronic kidney disease with stage 1 through stage 4 chronic kidney disease, or unspecified chronic kidney disease; I49.5 Sick sinus syndrome; Z79.82 Long term (current) use of aspirin; Z95.0 Presence of cardiac pacemaker
CPT/HCPCS: 36415; 36430; 51701; 71045; 80048; 80053; 80069; 80162; 81003; 81015; 82274; 82553; 82607; 82728; 82746; 83540; 83550; 83605; 83615; 83735; 83880; 84100; 84466; 84484; 85014; 85018; 85025; 85060; 85610; 85730; 86850; 86900; 86901; 87040; 87086; 87633; 87798; 87804; 87899; 93005; 94640; 94664; 96361; 96365; 96367; 96375; A4353; G8978-GP-CJ; G8979-GP-CI; J0360; J0456; J0696; J1160; J1940; J1956; J2543; J2920; J3370; J7050; J7506; J7620; P9016

== ENCOUNTER 2018-07-05 12:25 | Outpatient (CLI) | payer MEDICARE ==
--- NOTE | 2018-07-05 13:16 | RAD ---
CHEST TWO VIEWS: HISTORY: Dyspnea. COMPARISON: Radiograph from 05/10/2018. FINDINGS: The lungs are hyperinflated. No focal air space consolidation, pneumothorax, or effusion. A dual-le ad pacer is present. Mild levoscoliosis of the thoracic spine. Dense vascular calcifications. There is mild thickening along the right minor fissure. This is similar. IMPRESSION: Chronic findings. No acute intrathoracic abnormality. POS: H
== END 2018-07-05 12:26 | disposition home or self-care (01) ==
LOC: RAD 12:25
PROVIDERS: ATTEND Internal Medicine Pulmonary Disease
DX: R06.00 Dyspnea, unspecified (principal)
CPT/HCPCS: 71046

== ENCOUNTER 2018-07-30 15:16 | Emergency (ER) | payer MEDICARE ==
[2018-07-30 16:45] LABS: #Eosinphils 0.1 thou/uL (0.0-0.7); #Lymphocytes 1.3 thou/uL (1.20-3.40); #Monocytes 1.2 thou/uL (0.11-0.59); #Neutrophils 8.7 thou/uL (1.40-6.50); %Basophils 0.4 % (0.0-1.0); %Eosinophils 0.6 % (0.0-10.0); %Lymphocytes 11.1 % (21.0-51.0); %Monocytes 10.9 % (0.0-10.0); Hemoglobin 11.6 g/dL (12.0-16.0); Mean Corpuscular HGB CONC 31.2 g/dL (32.0-36.0); Mean Corpuscular Hemoglobin 24.1 pg (27.0-31.0); Mean Corpuscular Volume 77.4 fL (78.0-98.0); Mean Platelet Volume 9.8 fL (7.4-10.4); Platelet Count 318 thou/uL (130-400); RBC Distribution Width 17.6 % (11.5-14.5); White Blood Cell (WBC) Count 11.3 thou/uL (4.8-10.8)
--- NOTE | 2018-07-30 17:08 | CT ---
EXAM: BRAIN CT WITHOUT IV CONTRAST: History: Injury from a fall. Syncope. Comparison: 10-26-16 FINDINGS: Mild atrophy and chronic white matter ischemic change. Minimal artifact through the skull base region . No focal mass or midline shift. No intra or extraaxial hemorrhage. Stable appearance from prior sultana dy. IMPRESSION: No mass or bleed or other acute process. Stable from prior study. POS: [facility]
[2018-07-30 17:19] LABS: ALT (SGPT) 11 U/L (8-55); AST (SGOT) 19 U/L (5-34); Albumin 4.4 g/dL (3.4-4.8); Alkaline Phosphatase 103 U/L (40-150); Anion Gap 17 mmol/L (10-20); BUN (Urea Nitrogen) 37 mg/dL (9.8-20.1); Bilirubin, Total 0.3 mg/dL (0.2-1.2); Calc. Creatinine Clearance 0 mL/min (70-130); Calcium 10.3 mg/dL (7.8-10.44); Carbon Dioxide 24 mmol/L (23-31); Chloride 102 mmol/L (98-107); Estimated GFR-MDRD 44; Glucose 94 mg/dL (83-110); Potassium 5.3 mmol/L (3.5-5.1); Protein, Total 7.4 g/dL (6.0-8.3); Sodium 138 mmol/L (136-145)
[2018-07-30] MEDS ORDERED: Acetaminophen 500 MG TAB ONE (19:01)
--- NOTE | 2018-07-30 19:54 | RAD ---
LUMBAR SPINE THREE VIEWS: History: Fall. Comparison: None. FINDINGS: There is moderate dextroscoliosis of the thoracolumbar junction. There is associated degenerative dis c space changes of L3-4, L4-5 and L5-S1. No acute fracture or malalignment is appreciated. Moderate vascular calcifications. IMPRESSION: No acute fracture or malalignment. Moderate dextroscoliosis. POS: [facility]
[2018-07-30] MEDS ORDERED: hydrALAZINE 20 MG/ML VIAL ONE (20:48)
== END 2018-07-30 21:05 | disposition home or self-care (01) ==
LOC: ERS 15:16
DX: S09.90XA Unspecified injury of head, initial encounter (principal); S30.0XXA Contusion of lower back and pelvis, initial encounter; S50.11XA Contusion of right forearm, initial encounter; S60.221A Contusion of right hand, initial encounter; E78.5 Hyperlipidemia, unspecified; I48.91 Unspecified atrial fibrillation; I10 Essential (primary) hypertension; Z79.82 Long term (current) use of aspirin; Z79.899 Other long term (current) drug therapy; W17.89XA Other fall from one level to another, initial encounter
CPT/HCPCS: 36415; 70450; 72100; 80053; 84484; 85025; 93005; 96374; J0360